=== PATIENT | male | born 1990 | race Caucasian/White ===

== ENCOUNTER 2017-02-09 19:01 | Emergency (ER) | payer OTHER ==
[~2017-02-09] VITALS: Ht 182.9 cm; Wt 74.8 kg
== END 2017-02-09 20:06 | disposition home or self-care (01) ==
LOC: ED 19:01
DX: S05.02XA Injury of conjunctiva and corneal abrasion without foreign body, left eye, initial encounter (principal); F17.200 Nicotine dependence, unspecified, uncomplicated; Z88.1 Allergy status to other antibiotic agents; Z88.8 Allergy status to other drugs, medicaments and biological substances; X58.XXXA Exposure to other specified factors, initial encounter
CPT/HCPCS: 99282

== ENCOUNTER 2017-07-01 20:17 | Emergency (ER) | payer OTHER ==
[~2017-07-01] VITALS: Ht 182.9 cm; Wt 77.1 kg
[2017-07-01] MEDS ORDERED: IBUPROFEN200 MG PO (20:28)
== END 2017-07-01 23:36 | disposition home or self-care (01) ==
LOC: ED 20:17
DX: S16.1XXA Strain of muscle, fascia and tendon at neck level, initial encounter (principal); F17.200 Nicotine dependence, unspecified, uncomplicated; Z88.0 Allergy status to penicillin; Z88.1 Allergy status to other antibiotic agents; V89.2XXA Person injured in unspecified motor-vehicle accident, traffic, initial encounter
CPT/HCPCS: 72125; 73030; 99284

== ENCOUNTER 2018-05-28 13:12 | Emergency (ER) | payer OTHER ==
[~2018-05-28] VITALS: Ht 182.9 cm; Wt 77.1 kg
[~2018-05-28 13:12] MED LIST: IBUPROFEN200 MG PO
== END 2018-05-28 13:25 | disposition home or self-care (01) ==
LOC: ED 13:12
DX: R21 Rash and other nonspecific skin eruption (principal)

== ENCOUNTER 2021-01-11 08:26 | Inpatient (IN) | payer OTHER ==
[~2021-01-11] VITALS: Ht 182.9 cm; Wt 75.5 kg
[2021-01-11] MEDS ORDERED: FLUOXETINE HCL40 MG PO (08:41)
--- NOTE | 2021-01-11 12:20 | NUR ---
pt remians in day surgery/OR at this time, recieved report from DANAE daniels.
--- NOTE | 2021-01-11 12:24 | NUR ---
REPORT RECEIVED FROM TYREE FINK, THIS RN ASSISTING PRIMARY RN, MARIANO. PT REMAINS IN OR, AWAITING PTS ARRIVAL TO UNIT.
--- NOTE | 2021-01-11 13:00 | NUR ---
CALL PLACED TO [facility] FOR UPDATE ON PTS STAUTS, NO ANSWER AT THIS TIME.
--- NOTE | 2021-01-11 13:01 | CONS ---
[facility] [address], [place] [address] Signed DATE OF CONSULTATION: 01/11/2021 CHIEF COMPLAINT: Right lower quadrant abdominal pain. HISTORY OF PRESENT ILLNESS: Yary is a 30-year-old young man otherwise healthy, who I know previously from taking care of various family members. For two days now, he has had increasing right lower quadrant abdominal pain associated with nausea, diarrhea and anorexia. Apparently, his daughter had jumped on him at home. He finally decided to come to the emergency room for evaluation. He said many family members have had their appendix out. He has localized peritonitis in the right lower quadrant. White count is elevated. CT scan confirmed his thickened dilated appendix with some gas and fluid along the appendix and up the right gutter. I have been asked to see him as a general surgeon on-call. In the meantime, he received Cipro and Flagyl. His COVID test is almost available. I just come out of the operating room and have come to see Yary. He has received some morphine, we are going to add some Dilaudid as well. PAST MEDICAL HISTORY: Anxiety and depression. PAST SURGICAL HISTORY: Bilateral lazy eye surgery. SOCIAL HISTORY: He likes to smoke marijuana, but not cigarettes. He does not drink. He is to [facility] at [phone][address] Aimee Gonzáles is his primary care provider. 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 He prefers the [facility], although they are now currently closed permanently. FAMILY HISTORY: None. REVIEW OF SYSTEMS: He had 10 systems reviewed. There is nothing new to add. ALLERGIES: Augmentin. MEDICATIONS: Prozac 80 mg p.o. daily. PHYSICAL EXAMINATION: Electronically Signed By: LUIS WEINSTEIN MD 01/11/21 1301 PATIENT NAME: YARY WILCOX CONSULTATION DATE OF : 86 REPORT #: [id number] PHYSICIAN: LUIS WEINSTEIN MD PCP: AIMEE GONZÁLES MD REPORT IS CONFIDENTIAL AND NOT TO BE RELEASED WITHOUT AUTHORIZATION [facility] [address], [place] [address] Signed VITAL SIGNS: Blood pressure 136/86, heart rate 78, respiratory rate 18, temperature is 99.5, he is 99% on room air, he is 6 feet tall, weight 75 kg. GENERAL: Yary is a 30-year-old gentleman lying supine in his ER bed watching TV. He is currently having pain in the right lower quadrant of the abdomen. LUNGS: Clear to auscultation bilaterally. HEART: Regular rate and rhythm without murmurs. ABDOMEN: Generally soft and flat, but he certainly has localized peritonitis in right lower quadrant. LABORATORY DATA: White blood count is 23, neutrophils 84, hemoglobin 14. Electrolytes are unremarkable. Lactic acid is 1.2. Albumin is 4.0. Blood cultures are pending. His COVID test is almost available. RADIOGRAPHIC STUDIES: CT scan of the abdomen and pelvis is reviewed along with the report. He clearly has a thickened appendix, kind of below and just lateral to the cecum with some gas and some fluid in that area and the fluid is going up the right gutter just a bit. ASSESSMENT AND PLAN: Yary is a 30-year-old gentleman who presents with what looks like ruptured appendicitis. We are going to give him some additional Dilaudid at this point directly to the operating room here shortly once the COVID test is available. It should be within a few minutes. I reviewed with him the location of function of the appendix. He is very familiar with appendix surgery through his various family members. He understands laparoscopic versus open appendectomy. He understands there is risk including, but not limited to bleeding, infection, scarring, change in contour of the skin, damage to bowel, appendiceal stump leak, postoperative intraabdominal abscess, incisional hernias and other unforeseen comorbidities. We have reviewed the expected intraop and postop course. Given his level of illness, I suspect he will be in the hospital for a few days at least. He has expressed understanding and agrees to above plan. Luis Weinstein MD ALB/MODL /[id number] Electronically Signed By: LUIS WEINSTEIN MD 01/11/21 1301 PATIENT NAME: YARY WILCOXN CONSULTATION DATE OF : 86 REPORT #: [id number] PHYSICIAN: LUIS WEINSTEIN MD PCP: AIMEE GONZÁLES MD REPORT IS CONFIDENTIAL AND NOT TO BE RELEASED WITHOUT AUTHORIZATION [address] [address] Signed cc: MD Aimee Hurt MD Copies: LUIS WEINSTEIN MD ~ Electronically Signed By: LUIS WEINSTEIN MD 01/11/21 1301 PATIENT NAME: YARY WILCOX CONSULTATION DATE OF : 86 REPORT #: [id number] PHYSICIAN: LUIS WEINSTEIN MD PCP: AIMEE GONZÁLES MD REPORT IS CONFIDENTIAL AND NOT TO BE RELEASED WITHOUT AUTHORIZATION
--- NOTE | 2021-01-11 13:11 | NUR ---
PTS OLDER SISTER, HARRISON, CALLED AND REQUESTS UPDATE ON PT. HARRISON IS NOT ON PTS CONTACT LIST AND WAS ENCORUAGED TO CALL PTS FOR COMPLETE UPDATE. HARRISON TOLD THAT HER BROTHER IS SAFE AND RECOVERING AT THIS TIME. HARRISON IS GREATFUL FOR INFORMATION AND STATES SHE WILL CALL PTS SHORTLY.
--- NOTE | 2021-01-11 13:24 | NUR ---
01/11/21 1324 Darlene Jimenez 1254 PT ARRIVED IN PACU NON RESPONSIVE TO NOXIOUS STIMULI WITH OPA. 1317 PT REACTIVE. OPA REMOVED. ICE TO ABD. 1324 PT REPOSITIONED SELF TO R SIDE. NO C/O'S. STATES "I FEEL BETTER."
--- NOTE | 2021-01-11 13:45 | NUR ---
PT ARRIVED FROM PACU. REPORT RECEIVED FROM DANAE BUSCH. PT TRANSFERES SELF TO BED, STAND BY ASSIST. PT DENIES PAIN AND NAUSEA AT THIS TIME. NOTED THAT LOCAL WAS APPLIED TO INCISION SITES. GAUZE DRESSINGS TO SITES REMAIN C/D/I WITH NO DRAINAGE NOTED. BOWEL TONES HYPOACTIVE AT THIS TIME. PT ALERT AND ORIETNED BUT DROWSY, FALLS ASLEEP BETWEEN CARES. PINPOINT PUPILS NOTED, CPOX IN PLACE WITH OXGYEN SATURATIONS ABOVE 94% ON ROOM AIR. PT ON CLEAR LIQUID DIET AT THIS TIME, DENIES HUNGER, ICE WATER PROVIDED. PT REMAINS DUE TO VOID AT THIS THIS TIME, IV FLUIDS STARTED (SEE MAR). PT ENCORUAGED TO REST AT THIS TIME. I.S. EDUCATINO DONE BY DANAE QUINTANA. SCD'S IN PLACE. ICE PACK IN PLACE. PT DENIES ADDITIONAL REQUESTS OR COMPLAINTS. CALL LIGHT WITHIN REACH. BED RAILS UP.
--- NOTE | 2021-01-11 14:30 | NUR ---
DUPLICATE MEDICATIONS NOTED. DR. WEINSTEIN CONSULTED AND STATES TO HOLD ENOXAPARIN DOSE TODAY AND START TOMORROW SINCE PT HAS ALREADY RECEIVED A DOSE. DR. WEINSTEIN ALSO STATES TO RETIME FLAGY TO START 6 HOURS FROM ER DOES AND GIVE Q6 TODAY AND THEN CHANGE TOMORROWS DOES TO 1000MG Q DAY. PHARMACIST CALLED AND ORDERS ADJUSTED. PTS PRIMARY RN, MARIANO, UPDATED.
--- NOTE | 2021-01-11 14:45 | NUR ---
IN ROOM WITH PT, ASSESSMENT COMPLETED AT THIS TIME. VS OBTAINED. NO SOB NOTED. PT WITH C/O PAIN 3/10 TO RUQ. PT REPORTS TENDERNESS TO RUQ. BT X 4. INCISIONS X 3 TO RUQ AND MIDLINE WITH DRESSINGS C/D/I. IV DRESSING INTACT AND WNL. DENIES NAUSEA AT THIS TIME. PRN NORCO GIVEN AT THIS TIME. PT WITH ICE PACK ON ABD. PT CONTINUES TO TOELRATE CLEAR FLUIDS AT THIS ITME. IS PERFORMED BY PT X 5, 2000MLS. PT EDUCATION PROVIDED R/T IS, PT ABLE TO VERBALIZE UNDERSTANDING. PT STILL UNABLE TO VOID AT THIS TIME, DENIES NEED BUT WILL CALL IF HER NEEDS TO GO. PT SLEEPY, BUT WAKENS EASILY TO VOICE. PT PLEASANT AND COOPERAITVE WITH CARES. NO OTHER CONCERNS OR REQUESTS AT THIS TIME. BED RAILS UP. CALL LIGHT IN REACH.
--- NOTE | 2021-01-11 15:45 | NUR ---
IN ROOM TO CHECK ON PT. PT RESTING WITH EYES CLOSED, EASILY WAKENS BY VOICE, ASSESSMENT COMPLETED. ALERT AND ORIETNED. PT REPORTS PAIN 2/10 TO RUQ. RUQ REMAINS TENDER AT THIS TIME. PT DENIES NAUSEA AT THIS TIME, CONTIONUES TO TOELRATE FLUIDS WELL. INCISIONS TO RUQ AND ABD MIDLINE WITH DRESSINGS C/D/I. PT DENIES NEED TO VOID AT THIS TIME. PT REMAINS ALERT AND OREITNED. SCDS ON AT THIS TIME. IV REMAINS PATENT AT THIS TIME, NO S/SX OF INFILTRATION OR PHELEBITIS AT THIS TIME. PT ASSISTED WITH BLANKETS AND REPOSITIONING. PT OFFERED WARM BLANKET, PT DECLINED. NO OTHER CONCERNS, REQUESTS, CALL LIGHT IN REACH.
--- NOTE | 2021-01-11 16:45 | NUR ---
VIALS AND ASSESSMENT DUE. THIS RN TO ROOM. PT RESTING ON LEFT SIDE WITH EYES CLOSED. RESPIRATIONS EVEN AND UNLABORED. PT AWAKENS TO VOICE. PT NOTED TO BE DIAPHORETIC. PT REPORTS "I ALWAYS SWEAT WHEN I SLEEP." PT STATES HE HAS HAD TROUBLE SWEATHING WITH SLEEP SINCE HE WAS A CHILD. VITAL SIGNS STABLE. IV ASSESSED, WNL, BRISK BLOOD RETURN NOTED WITH FLUSH. PT ORIENTED BUT CONTINUES TO BE DROWSY AND FALLING ALSEEP BETWEEN CARES. COPX IN PLACE WITH OXYGEN SATURATIONS ABOVE 94% ON ROOM AIR. LUNG SOUNDS CLEAR. PT UP TO RESTROOM WITH STAND BY ASSIST TO VOID. PT REPORTS PAIN INCREASES TO A 4/10 WITH AMBULATION BUT RESOLVES WITH REST. PT VOIDS 100ML DARK YELLOW URINE. PT REPORTS THE SWELLING TO HIS ABOMDOMEN HAS IMPROVED STATING "IT'S AMAZING HOW MUCH THAT SWELLING HAS GONE DOWN ALREADY." MILD SWELLIGN TO RLQ NOTED. ABDOMEN TENDER TO TOUCH. HYPOTACTIVE BOWEL TONES NOTED. PT DENIES NAUSEA. LAP SITES X4 C/D/I BUT FOR A DIME SIZE AMOUNT OF RED SHADOWING TO UMBILICAL DRESSING. STAND BY ASSIST BACK TO BED, WARM BLANKETS PROVIDED. GENERAL SCIENCE TEACHER UPDATED AND WILL REASSES VITAL SIGNS AT ~1800. PT DENIES ADDITIONAL REQUESTS OR COMPLAINTS. CALL LIGHT WITHIN REACH. BED RAILS UP.
--- NOTE | 2021-01-11 17:51 | NUR ---
Patient's temperature is 99. RN will be notified right away.
--- NOTE | 2021-01-11 18:00 | NUR ---
Hua is on clears and had a jello for dinner, 100 ml.
--- NOTE | 2021-01-11 18:09 | NUR ---
THIS RN TO ROOM TO CHECK ON PT. PT REPORTS 4/10 ACHING ABDOMINAL PAIN AND REQUESTS ADDITIONAL PAIN MEDICATION (SEE MAR FOR MEDICATION GIVEN). PT TALKING ON PHONE WITH FAMILY. NO ADDITIONAL REQUESTS OR COMPLAINTS. CONTINUES TO BE DIAPHORETIC WITH SLEEP, DIAPHORESIS STOPPS ONCE PT IS AWAKE. VITAL SIGNS STABLE. CALL LIGHT WITHIN REACH. BED RAILS UP.
--- NOTE | 2021-01-11 18:12 | NUR ---
PTS SISTER HARRISON UPDATED PER PT REQUEST. HARRISON VERBALIZES UNDERSTANDING OF PLAN OF CARE AND STATES HER QUESTIONS HAVE BEEN ANSWERED. PTS MOTHER, AMENA, CALLED AND UPDATED PER PT REQUEST. AMENA VERBALIZES UNDERSTANDING AND STATES HER QUESTIONS HAVE BEEN ANSWERED.
--- NOTE | 2021-01-11 18:17 | NUR ---
PT ADMITTED THIS SHIFT AFTER A LAP APPY FOR A RUPTURED APPENDIX. PT UP WITH STAND BY ASSIST TO RESTROOM. PT HAVE VOIDED POST OP BUT ONLY MINIMAL AMOUNTS. PT ON CLEAR LIQUID DIET, TOLERATING THIS SHIFT WITHOUT NAUSEA. PRN PAIN MEDICATIONS GIVNE FOR 2-4/10 ACHING ABDOMINAL PAIN. COPX IN PLACE WITH OXYGEN SATURATIONS ABOVE 94% ON ROOM AIR. GAUZE DRESSINGS TO 3 ABDOMINAL LAB SITES C/D/I BUT FOR A DIME SIZE AMOUNT OF RED SHADOWING ON THE UMBILICAL DRESSING. PTS FAMILY UPDATED. PT ALERT AND ORIENTED. DIAPHORESIS NOTED WHEN PT IS SLEEPING, PT REPORTS THIS IS NORMAL FOR HIM. PT USES CALL LIGHT AND MAKES NEEDS KNOWN.
--- NOTE | 2021-01-11 19:00 | NUR ---
SHIFT REPORT RECEIVED FROM SHRUTHIWAMOISES NOGUEIRA AT BEDSIDE. pt AWAKE AND RESTING IN BED, URINAL EMPTIED. IV FLUIDS INFUSING DIRECTED. LAP SITES INTACT, WITH SCANT SHADOWING NOTED TO LAP SITE ABOVE UMBILLICUS. pt DENIES NEEDS RO CONCERNS, SCD'S OFF PER pt REQUEST. NO ADDITIONAL NEEDS, CALL LIGHT IN REACH.
--- NOTE | 2021-01-11 20:25 | NUR ---
IN TO GET VITALS, ICE WATER PROVIDED ,MARVIN LOPEZ, RN INFORMED, PT USED I.S., NO FURTHER NEEDS
--- NOTE | 2021-01-11 20:59 | NUR ---
ASSESSMENT COMPLETE, SCHEDULED IV ABX INFUSING DIRECTED ALONG WITH IV FLUIDS, IV SITE WNL WITH BRISK BLOOD RETURN. pt REPORTS 3/10 PAIN IN ABD, PRN MOTRIN GIVEN, SEE EMAR. pt DENEIS NAUSEA, NO NEW SHADOWING TO LAP SITES X3. BOWEL TONES ACTIVE pt DENIES PASSING GAS, EDEMA IN LOWER ABD IMPROVING, WILL CONTINUE TO MONITOR. pt TOLERATING CLEAR LIQUID DIET. CPOX IN PLACE, VSS. IS AT BEDSIDE AND pt DEMONSTRATED USE. NO ADDITIONAL NEEDS, DECLINES SCD'S AT THIS TIME. CALL LIGHT IN REACH.
--- NOTE | 2021-01-11 21:27 | OR ---
[facility] [address] [place], [place] [address] Signed DATE OF OPERATION: 01/11/2021 SURGEON: Luis Weinstein MD PREOPERATIVE DIAGNOSIS: Ruptured appendicitis. POSTOPERATIVE DIAGNOSIS: Ruptured appendicitis. PROCEDURE: Laparoscopic appendectomy. ESTIMATED BLOOD LOSS: None. FINDINGS: Yary indeed had a black necrotic distal appendix with a rupture in the midportion. Just a little stool present at the perforation. He did have some fluid in the right gutter and up near his liver. That was all suctioned out quite easily. INDICATIONS: Yary is a 30-year-old gentleman I have known actually for quite a few years. I have taken care quite a few of his family members including appendicitis. Two days ago, he started having pain in the right lower quadrant. It became progressively worse. He is having nausea, diarrhea, and anorexia. He finally came to the emergency room for evaluation. He had peritonitis in the right lower quadrant. White count was elevated. CT scan confirmed his thickened dilated ruptured appendix with some gas and fluid around the appendix and up along the right gutter toward the liver. I was asked to see me in the emergency room with respect to the above. He received Cipro and Flagyl per the ER physician. He had received pain medication as well. I had met with Yary in the emergency room. We had discussed the location and function of the appendix. We discussed laparoscopic versus open appendectomy. He reminded me that I had taken care several of his family members for appendicitis. Given his ruptured appendix, we suspect he will be in the hospital at least for a few days. He knows his risks including, but not limited to bleeding, infection, scarring, change in contour of the skin, damage to bowel, appendiceal stump leak, postoperative intraabdominal abscess, incisional hernias, and other unforeseen comorbidities. He had expressed understanding and wished to proceed. Electronically Signed By: LUIS WEINSTEIN MD 01/11/212126 PATIENT NAME: YARY WILCOX OPERATIVE REPORT DATE OF : 86 REPORT #: [id number] PHYSICIAN: LUIS WEINSTEIN MD PCP: AIMEE GONZÁLES MD REPORT IS CONFIDENTIAL AND NOT TO BE RELEASED WITHOUT AUTHORIZATION [facility] [address] [place] [id number] Signed PROCEDURE NOTE: Yary was taken directly from the emergency room over to the operating room. He was placed in the supine position under general endotracheal tube anesthesia. He did receive subcutaneous Lovenox. SCDs were utilized. He already had his preoperative antibiotics. A Alas catheter was inserted with return of clear yellow urine without difficulty. His abdomen was prepped and draped in usual sterile fashion. We placed our trocars in the usual positions under direct visualization without difficulty. It took a few minutes to bluntly dissect the appendix free. The base of the appendix was cleared off with the help of the cautery and divided from the cecum with the help of a linear stapler. We then used a linear stapler to divide the mesoappendix next to the appendix as well. All hemostasis was excellent. The appendix was placed into an EndoCatch bag and taken out through the right subcostal trocar site. The trocar was reintroduced and we suctioned out the fluid in the right gutter along the liver. There was no abscess cavity and therefore no drain was left. He did have moderate inflammatory changes. After this, we used our laparoscopic suturing device to pass 0 Vicryl suture on either side of the fascia of the right subcostal trocar site. This was tied down to close this fascia primarily. After this, the fascia of the supraumbilical trocar site was closed with interrupted simple and [id number] 0-Vicryl sutures. Local anesthetic was injected into all 3 trocar sites. Each trocar site was irrigated and suctioned out until clear. The skin and dermis of each trocar site were closed with interrupted 3-0 subcuticular Monocryl sutures. Dry gauze and tape were applied to all 3 incisions. The Alas catheter was removed. Yary was awakened from his anesthesia, extubated in the OR, and taken to recovery room in stable condition. Luis Weinstein MD ALB/MODL /[id number] cc: MD Dr. Aimee Hurt Copies: LUIS WEINSTEIN MD Electronically Signed By: LUIS WEINSTEIN MD 01/11/21 2127 PATIENT NAME: YARY WILCOX JUNIOR OPERATIVE REPORT DATE OF : 86 REPORT #: [id number] PHYSICIAN: LUIS WEINSTEIN MD PCP: AIMEE GONZÁLES MD REPORT IS CONFIDENTIAL AND NOT TO BE RELEASED WITHOUT AUTHORIZATION [address] [address] Signed ~ Electronically Signed By: LUIS WEINSTEIN MD 01/11/212126 PATIENT NAME: YARY WILCOX OPERATIVE REPORT DATE OF : 86 REPORT #: [id number] PHYSICIAN: LUIS WEINSTEIN MD PCP: AIMEE GONZÁLES MD REPORT IS CONFIDENTIAL AND NOT TO BE RELEASED WITHOUT AUTHORIZATION
--- NOTE | 2021-01-11 22:59 | NUR ---
pt reports he has been sleeping until just got up to void
--- NOTE | 2021-01-12 06:09 | NUR ---
[phone] SEE PAPER CHARTING
--- NOTE | 2021-01-12 06:15 | NUR ---
iv pump cleared, iv site wnl. pt deny additional needs, call light in reach. facility designer froilan in room collecting vs.
--- NOTE | 2021-01-12 07:28 | NUR ---
REPORT RECEIVED FROM DANAE STEPHENS. PT RESTING IN BED WITH EYES CLOSED, RESPIRATIONS EVEN AND UNALBORED. OXYGEN SATURATION 94% ON ROOM AIR, HEART RATE OF 80. PT ALLOWED TO REST. CALL LIGHT WITHIN REACH. BED RAILS UP.
--- NOTE | 2021-01-12 08:13 | NUR ---
MED REC COMPLETE
--- NOTE | 2021-01-12 09:00 | NUR ---
Spoke with Bunny and he states he lives with his , kids, and father in law in a 1 story home. Two steps into home. does not drive, he states father in law can grocery shop if needed. Pt is aware of [employer] and [employer]. States they are financially ok. I gave him the number for [employer] [facility]. Pt denies other concerns. States he may need to be off for a few days. Discussed FMLA and need to and sick leave. Plans on dc to home when cleared medically by Dr. Jefferson. He is aware plans on him staying a few more days due to appendics being ruptured.
--- NOTE | 2021-01-12 09:04 | NUR ---
MORNING ASSESSMENT AND MEDICATION DUE. PT SITTING UP IN BED EATING CLEAR LIQUIDS FOR BREAKFAST. PT DENIES NAUSEA. REPORTS 5/10 ACHING "WITH A PINCH" "BECAUSE I JUST COUGHED." PT REQUESTS PAIN MEDIACTION (SEE MAR FOR MEDICATION GIVEN). PT ALERT AND ORIENTED. NO LONGER DROWSY. LUNG SOUNDS CLEAR. OXYGEN SATURATIONS REMAIN ABOVE 94% ON ROOM AIR. CPOX IN PLACE. MILD ABDMONIAL EDEMA CONTINUES ESPICIALLY TO RIGHT LOWER QUADRANT. ABDOMEN TENDER TO TOUCH. BOWEL TONES ACTIVE, PT REPORTS HE HAS PASSED [place] AN ADDITIONAL TIME. QUARTER SIZE AMOUNT OF RED SHADOWING TO CAUDAL DRESSING, DIME SIZE AMOUNT OF SHADOWING TO UMBILICAL DRESSING. DRESSINGS OTHERWISE C/D/I. PT DEMONSTRATES USE OF I.S. REACHING 1750-2000ML X5. PT REQUESTS A NEW IV STATING "THIS ONE IS BEEPING ALL THE TIME." STUDENT NURSE STARTING NEW IV WITH HER INSTRUCTORS HELP.IV ABX CONTINUE INFUSING AT THSI TIME. THROUGH LEFT AC IV. PT DENIES ADDITONAL REQUESTS OR COMPLAINTS. CALL LIGHT WITHIN REACH. BED RAILS UP.
--- NOTE | 2021-01-12 09:41 | NUR ---
THIS RN TO ROOM TO CHECK ON PT AND PROGRESS WITH IV. STUDENT RN WAS SUCCESSFUL WITH IV PLACEMENT. IV FLUDS AND ABX INFUSION TRANSFERED TO NEW LINE IN LEFT FORARM. IV TO LEFT AC DC'D PER PROTOCOL BY STUDENT RN. GAUZE AND COBAN APPLIED. PT REPORTS THE PAIN IS "ABOUT THE SAME BUT IT'S STARTING TO GO DOWN A LITTE." PT DEMONSTRATES USE I.S. X3 REACHING ~2000ML. NO ADDITIONAL REQUESTS OR COMPLAINTS. CALL LIGHT WITHIN REACH. BED RAILS UP.
--- NOTE | 2021-01-12 10:30 | NUR ---
THIS RN TO ROOM TO CHECK ON PT. PT REPORTS PAIN IS NOW 4/10, PT REQUESTS TO GET UP TO AMBULATE. 1 SHORT LAP DONE IN [place]. PT STEADY ON FEET BUT BECOMES INCREASINGLY PAINFUL WITH AMBULATION UP TO 7/10. ADDITIONAL PAIN MEDICATION GIVEN BY STUDENT RN. IV FLUID RATE DECREASED PER MD ORDER. PT ENCOURAGED TO DRINK PO FLUIDS. NO ADDITIONAL REQUESTS OR COMPLAINTS AT THIS TIME. CALL LIGHT WITHIN REACH. BED RAILS UP.
--- NOTE | 2021-01-12 11:16 | NUR ---
THIS RN TO ROOM TO CHECK ON PT. PT RESTING WITH EYES CLOSED, RESPIRATIONS EVEN AND UNABLORED. HEAD OF BED ELEVATED TO 30 DEGREES. BED RAILS UP. CALL LIGHT WITHIN REACH. PT ALLOWED TO REST.
--- NOTE | 2021-01-12 14:01 | NUR ---
DANAE RUIZ REQUESTED I NOT DISTURB PT AT THIS TIME, WILL FOLLOW
--- NOTE | 2021-01-12 14:30 | NUR ---
AFTERNOON ASSESSMENT DUE. THIS RN TO ROOM. PT UP IN ROOM, WALKING TO RESTROOM, NO ASSISTANCE NEEDED. PT RETURNS FROM RESTROOM, INDEPENDANTLY. REPORTS 6-7/10 ACHING ABDOMINAL PAIN WITH ACTIVITY AND REQUESTS PAIN MEDICATION. SEE MAR FOR MEDICATION GIVEN. PT REPORTS HE FELT LIKE HE NEEDED TO HAVE A BOWEL MOVEMENT BUT WAS UNABLE TO. EDUCATION DONE WITH PT. PT ENCORUAGED NOT TO STRAIN OR FORCE BOWEL MOVEMENTS AT THIS TIME. IV ASSESSED. WNL, NO S/S OF PHELBITIS NOTED. PT NOTES THAT DIAPHROESIS CONTINUES WHEN SLEEPING ALTHOUGH TO A LESSER DEGREE THAN YESTERDAY. MILD ABDOMINAL DISTENTION NOTED. ABDOMEN CONTINUES TO BE TENDER TO TOUCH. GAUZE DRESSINGS PREVIOUSLY REMOVED BY DR. WEINSTEIN. INCISIONS C/D/I WITH NO DRAINGE NOTED, EDGES WELL APROXIMATED. PT ADVANCED TO FULL LIQUID DIET, PT ABLE TO EAT SOUP WITH OUT NAUSEA. PT REPORTS MINIMAL APPITITIE. PT DENIES ADDIITONAL REQUESTS OR COMPLAINTS. CALL LIGHT WITHIN REACH. BED RAILS UP.
--- NOTE | 2021-01-12 15:44 | NUR ---
THIS RN TO ROOM TO CHECK ON PT. TEMPERATURE REASSESSED, NOW 98.4. PT REPORTS ABDOMINAL PAIN AT 6/10. PT REPORTS ANY KIND OF MOVEMENT IS INCREASING ABDOMINAL PAIN. NEW ICE PACK PROVIDED. PT REPORTS HE WOULD LIKE TO WAIT AN ADDITIONAL FEW MINUTES WITH REST TO SEE IF PAIN INPROVES. PT DEMONSTRATES USE OF I.S. REACHING 2000ML X2. PT REPORTS HE CAN FEEL "AIR MOVING AROUND" IN HIS ABDOMIN. PT NOW RESTING WITH EYES CLOSED. RESPIRATIONS EVEN AN UNLABORED. CALL LIGHT WITHIN REACH. BED RAILS UP.
--- NOTE | 2021-01-12 17:15 | NUR ---
THIS RN TO ROOM TO CHECK ON PT. PT EPORTS PAIN HAS IMPROVED, NOW 05/18. JOSEPH RN AT BEDSIDE WORKING WITH PT (SEE HER NOTE). PT EATING FULL LIQUIDS FOR DINNER. NO ADDITIONAL REQUESTS OR COMPLAINTS. CALL LIGHT WITHIN REACH.
--- NOTE | 2021-01-12 17:24 | NUR ---
THIS NURSE TO ROUND ON PT. PT IN BED. REPROTS PAIN 05/18. DOES REPORT NAUSEA. ZOFRAN ADMISNTERED. NO EMESIS. DIET ORDER CHANGED TO VEGITARIAN PER PT REQUEST AND NEW DINNER ORDERED. VOIDED 100ML. WORKING ON INCENTIVE SPEROMETER NOW. PLAN FOR WALK AFTER DINNER.
--- NOTE | 2021-01-12 17:40 | NUR ---
Pt complained of nausea. IV zofran given per order for PRN nausea. Will continue to monitor. Pt is currently denying nausea and requesting to go on a walk.
--- NOTE | 2021-01-12 18:15 | NUR ---
AMBULATED PT DOWN HALLWAY WITH IV POLE. STATED THE WALKING HELPED WITH ABDOMINAL PAIN AND FELT THE AIR MOVING DOWN THROUGH HIS BOWELS. EDUCATED ON IMPORTANCE OF AMBULATING TO HELP MOVE THE AIR THROUGH TO PREVENT ILEUS.
--- NOTE | 2021-01-12 18:17 | NUR ---
THIS RN TO ROOM TO CHECK ON PT. PT REPORTS 3/10 PAIN THAT IS "MUCH BETTER" PT REPORTS PAIN IS MOSTLY IN RUQ AND MINIMAL "LIKE A 1" IN OTHER QUADRANTS. PT DENIES NAUSEA. LAP SITES X3 TO ABDOMEN REAMAIN C/D/I, EDGES WELL APROXIMATED WITH NO DRAINAGE NOTED. PT DENIES ADDITIONAL REQUESTS OR COMPLAINTS AT THIS TIME. EDUCATION DONE WITH PT REGARDING PHOTOGRAPHS THAT WERE PROVIDED FROM DR. WEINSTEIN OF [facility]. CALL LIGHT WITHIN REACH. BED RAILS UP.
--- NOTE | 2021-01-12 18:23 | NUR ---
PT POST OP DAY 1 AFTER LAP APPY FOR RUPTURED APPENDICITIS. PT UP TODAY INDEPENDANTLY, AMBULATES IN [place] WITH STAND BY ASSIST. PAIN CONTROLED WITH PO NORCO AND MOTRIN. PT ADVANCED TO FULL LIQUID DIET, TOLERTING WELL. PRN NAUSEA MEDICATIONS GIVEN X1. PT REPORTS HE IS PASSING GAS, ABDOMEN REMAINS TENDER. GAUZE DRESSINGS REMVOED BY DR. WEINSTEIN THIS SHIFT, INCISIONS C/D/I WITH NO DRAINAGE NOTED, EDGES WELL APROXIMATED. IV ABX GIVEN. PT TOLERATING ROOM AIR WIHT OXYGEN SATURATIONS ABOVE 94%, CPOX DC'D. PT VOIDING QUANTITY SUFFICIENT. PT USES CALL LIGHT AND MAKES NEEDS KNOWN.
--- NOTE | 2021-01-12 20:35 | NUR ---
on room air, alert and oriented, coop with assessment. Lungs clear, using IS at bedside. abd tender, firmer and distended on R side, not passing gas yet, EFREN. 3 lap sites intact, edges well approx. pink, dry, c/o 6/10 abd pain, medicated with 2 [place] . toleratng liquids well, no emesis. voiding dark yellow urine using urinal. IVF infusing LA, call light at hands reach. T99.8, received 2 norco, ice to abd. room temp decreaed from 76 to 70, 2 blankets removed.
--- NOTE | 2021-01-12 22:45 | NUR ---
pt up to br, voided, back to bed, afebrile at this time
--- NOTE | 2021-01-13 01:00 | NUR ---
Up to br, uses urinal, tolerated well, no c/o pain.
--- NOTE | 2021-01-13 03:58 | NUR ---
Resting, eyes closed, got up to br a few minutes ago, tolerated well, denies passing gas, abd incision lap sites intact. ivf infusing. no c/o adverse reaction to abx, tolerating full liquid diet well, no emesis, call light at hands reach
--- NOTE | 2021-01-13 05:43 | NUR ---
Pt has slept off and on, independent in room, on room air, clear lungs, abd with 3 lap sites, intact, low abd area slight distention, HEA. Has been medicated X2 with 2 norco per abd pain, effective. just passed gas stated. IV restarted L Hand 22G, IVF and abx infusing w/o problems. Tolerating full liquid diet. no emesis, pleasant, coop. alert and oriented, has ambulated in room, SCDS off at this time.
--- NOTE | 2021-01-13 06:49 | NUR ---
pt staed he passes gas again. Dr Jefferson in room examining pt
--- NOTE | 2021-01-13 07:32 | NUR ---
REPORT RECEIVED. PT IN BED WITH EYES CLOSED. RESPIRATIONS EQUAL AND NONLABORED. D5LR INFUSING AT 50ML/HR. CALL LIGHT IN REACH.
--- NOTE | 2021-01-13 09:55 | NUR ---
PT HAD LARGE INCONT BOWEL MOVEMENT. SHOWERED AFTERWARDS INDEPENDENTLY. PT THEN OUT TO AMBULATE HALLS WITH CIRCULAR KNITTER. TOLERATED WELL WITH MINIMAL PAIN. ASSESSMENT COMPLETED. PT WITH NO NAUSEA. BREAKFAST AT BEDSIDE STILL. DENIES NEEDS. STUDENT NURSE ADMINSTERING MEDICATIONS WITH INSTRUCTOR.
--- NOTE | 2021-01-13 09:57 | NUR ---
PATIENT WAS IN BATHROOM. SHELL SORTER STATES HE IS TAKING A SHOWER. PATIENT HAS NO CHANGES IN PLAN TO RETURN HOME AT DISCHARGE WITH FAMILY. NO KNOWN BARRIERS AT THIS TIME. WILL FOLLOW NEEDED.
--- NOTE | 2021-01-13 13:40 | NUR ---
PT REPORTS PAIN IS IMPROVED FRO MOTRIN. OUT AMBULATING HALLS NOW INDEPENDENTLY.
--- NOTE | 2021-01-13 15:30 | NUR ---
Call light answered, pt states having nausea, PRN zofran administered. IV ABX infusing. Pt also states having abdominal/incisional pain, medicated with PRN norco. He states no further needs. Lap sites x3 WNL, C/D/I, well approximated. CMS intact, even and unlabored respirations. Call light in reach.
--- NOTE | 2021-01-13 19:10 | NUR ---
PATIENT TOOK A SHOWER SOMETIME THIS MORNING.
--- NOTE | 2021-01-13 21:20 | NUR ---
pt walked hallways, and in room, back to bed, onroom air, coop with assessment. lungs clear, passing gas, had a bm, and w 3 lap sites intact, eryn, small distention lower abd. c/o 6/10 abd pain, medicated with Motrin. IVF infusing, no c/o adverse reaction to abx. tolerating diet and fluids, no emesis. scds off at this time. call light and fluids at hands reach
--- NOTE | 2021-01-13 23:13 | NUR ---
resting, eyes closed, no distress, on room air, ivf infusing,
--- NOTE | 2021-01-14 01:18 | NUR ---
awake, c/o 6/10 abd pain. and lap sites intact, CD, edges well approximated, pink, HEA, tender abd, medicated with norco 2tabs. tolerating liquids well, no emesis. voiding qs yellow urine. IVF infusing, no c/o adverse reaction to abx
--- NOTE | 2021-01-14 03:34 | NUR ---
Resting, eyes closed, on room air, ivf infusing, no further c/o abd pain. fluids and call light at handsa reach.
--- NOTE | 2021-01-14 05:48 | NUR ---
Pt has slept off and on. on room air, lungs clear, has been medicated with motrin and norco x1 each time per abd pain, effective. 3 abd lap sites incision well approx, dry, pink, abd tender, HEA, has had bm, passing gas, voiding QS. IVF infusing w/o problems, no c/o adverse reaction to abx. tolerating fluids and diet well, no emesis. ambulated this shift. tolerated well. pleasant, alert and oriented. turns and repositions self
--- NOTE | 2021-01-14 06:13 | NUR ---
MANAGER MSW ROUNDS WITH . PT UPDATED REGARDING POC, UNDERSTANDING STATED. PT DENIES FURTHER NEEDS AT THIS TIME. CALL LIGHT IN REACH.
--- NOTE | 2021-01-14 06:16 | NUR ---
DR WEINSTEIN IN ROOM TO SEE PT.
--- NOTE | 2021-01-14 07:20 | NUR ---
REPORT RECEIVED FROM RN NICOLETTE. pt RESTING IN BED ON RIGHT SIDE. IV ANTIBIOTIC COMPLETE. EYES CLOSED, BREATHING EQUAL AND UNLABORED.
[2021-01-14] MEDS ORDERED: HYDROCODON-ACE1 EA10 PO (07:36)
[2021-01-14] MEDS ORDERED: METRONIDAZOLE500 MG PO (07:37)
[2021-01-14] MEDS ORDERED: LEVOFLOXACIN500 MG PO (07:37)
--- NOTE | 2021-01-14 07:46 | NUR ---
PT SLEEPING. UPDATED WHITE BOARD. WILL CHECK BACK IN ON PT SHORTLY. CALL LIGHT WITHIN REACH.
--- NOTE | 2021-01-14 09:10 | NUR ---
pt RESTING IN BED AWAKE. ASSESSMENT COMPLETE. BOWEL TONES ACTIVE, ABD SOFT, TENDER IN LLQ WITH PALPATION. LOWER ABDOMEN DISTENDED. pt STATES PASSING GAS. DENIES NAUSEA. RATES PAIN 3/10 IN ABDOMEN. DENIES NEED FOR PRN MEDICATION. WRITTEN DISCHARGE INSTRUCTION PROVIDED. IV SITE D/C'D WNL. pt WAITING IN ROOM FOR RIDE. ICE WATER AND COFFEE PROVIDED. CALL LIGHT IN REACH.
--- NOTE | 2021-01-14 10:16 | DS ---
[facility] [address], [place] [address] Signed ADMISSION DATE: 01/12/2021 DISCHARGE DATE: 01/14/2021 FINAL DIAGNOSIS: Ruptured appendicitis. PROCEDURE: Laparoscopic appendectomy. HISTORY OF PRESENT ILLNESS: Yary is a 30-year-old gentleman, who had developed 2 days of right lower quadrant abdominal pain with nausea, diarrhea, and anorexia. He finally came to the emergency room for evaluation. White count was elevated. He had peritonitis in the right lower quadrant. The CT scan confirmed his dilated appendix with some gas and fluid around the appendix and up along the right gutter. I had been asked to admit him as a general surgeon on-call. HOSPITAL COURSE: Yary was admitted as above and started on his antibiotics. He was taken directly to the operating room from the ER for his laparoscopic appendectomy. He did have a rupture with a little stool present at the opening. He had inflammatory changes around his terminal ileum, cecum, and up to right gutter. No obvious abscess. Therefore, no drain was left in place. He was kept in the hospital on cefepime and Flagyl. He has done very well and now he has had just 1 single small temperature elevation yesterday. He is tolerating a soft diet. He is having moderate amount of flatus. He has had a small bowel movement. His abdomen is flat. The peritonitis resolved in about 24 hours. He is tender in the right lower quadrant, but markedly improved. It is fairly minimal at this time. All his incisions are healing well without any local signs or symptoms of infection. Due to his progress, we are going to be discharging him to home. DISCHARGE PLANS AND MEDICATIONS: Yary will be discharged to home with a prescription for [place] 5/325 one tablet p.o. q.6 hours p.r.n. for severe postoperative pain. We will dispense 20 tablets with no refills. He can supplement with Tylenol, ibuprofen, or Aleve for [id number] postoperative pain. That can be purchased [id number]. He will have Levaquin 500 mg 1 tablet p.o. daily for 7 days without refills. He will have Flagyl 500 mg 1 tablet p.o. t.i.d. for 7 days without refills. He can continue his chronic medications at home. He will continue a regular diet at home. He can perform his activities of daily living, including walking up and down stairs and showering, bathing as usual. He is not to do any heavy pushing, pulling, or lifting over 20 pounds. He would not be working Electronically Signed By: LUIS JEFFERSON MD 01/14/21 1016 PATIENT NAME: YARY WILCOX DISCHARGE SUMMARY DATE OF : 86 REPORT #: [id number] PHYSICIAN: LUIS JEFFERSON MD PCP: AIMEE GONZÁLES MD REPORT IS CONFIDENTIAL AND NOT TO BE RELEASED WITHOUT AUTHORIZATION [address] [address] Signed currently. He will return to my office in about a week. Luis Jefferson MD ALB/MODL /[id number] cc: Dr. Aimee Jefferson MD Copies: LUIS JEFFERSON MD ~ Electronically Signed By: LUIS JEFFERSON MD 01/14/21 1016 PATIENT NAME: YARY WILCOX JUNIOR DISCHARGE SUMMARY DATE OF : 86 REPORT #: [id number] PHYSICIAN: LUIS JEFFERSON MD PCP: AIMEE GONZÁLES MD REPORT IS CONFIDENTIAL AND NOT TO BE RELEASED WITHOUT AUTHORIZATION
--- NOTE | 2021-01-14 10:24 | NUR ---
PT UP TO RESTROOM FOR VOID. VSS. OFF FLOOR VIA WHEELCHAIR AT THIS TIME. CARE RIDE PROVIDED. AMALIA OKEEFE.
== END 2021-01-14 10:25 | disposition home or self-care (01) | DRG 340 ==
LOC: ED 08:26 → MS 08:27
PROVIDERS: ADMIT Colon & Rectal Surgery; ATTEND Colon & Rectal Surgery
PROC: 0DTJ4ZZ Resection of Appendix, Percutaneous Endoscopic Approach (ICD-10-PCS; principal; 2021-01-11 11:13)
DX: K35.32 Acute appendicitis with perforation, localized peritonitis, and gangrene, without abscess (principal); Z20.822 Contact with and (suspected) exposure to COVID-19; F41.9 Anxiety disorder, unspecified; F32.9 Major depressive disorder, single episode, unspecified; Z88.1 Allergy status to other antibiotic agents
CPT/HCPCS: 00840; 74177; 80053; 81001; 83605; 83690; 85007; 85025; 88304; 96367; 96375; 96376; 99285-25; A9270; C9803; G0378; J0131; J0330; J0692; J0744; J1100; J1170; J1650; J1885; J2001; J2250; J2270; J2405; J2704; J3010; J7030; J7121; Q9967; U0003

== ENCOUNTER 2022-07-29 18:52 | Emergency (ER) | payer OTHER ==
[~2022-07-29] VITALS: Ht 182.9 cm; Wt 75.3 kg
[~2022-07-29 18:52] MED LIST changes: +FLUOXETINE HCL40 MG PO; +HYDROCODON-ACE1 EA10 PO; +LEVOFLOXACIN500 MG PO; +METRONIDAZOLE500 MG PO
[2022-07-29] MEDS ORDERED: CLEOCIN HCL300 MG PO (21:15)
[2022-07-29 21:25] VITALS: BP 128/77
== END 2022-07-29 21:26 | disposition home or self-care (01) ==
LOC: ED 18:52
DX: K02.9 Dental caries, unspecified (principal); Z88.0 Allergy status to penicillin; Z88.8 Allergy status to other drugs, medicaments and biological substances
CPT/HCPCS: 99282

== ENCOUNTER 2022-09-12 20:26 | Emergency (ER) | payer OTHER ==
[~2022-09-12] VITALS: Ht 182.9 cm; Wt 94.8 kg
--- OUTSIDE RECORDS SUMMARY | ~2022-09-12 | XMS | Continuity of Care Document ---
Demographics + + + | Address | [address] | | | [place] [address] | + + + | Preferred Language | Unknown | + + + | Marital Status | | + + + | Cheondoism Affiliation | Unknown | + + + | Race | White | + + + | Ethnic Group | Not or | + + + Author + + + | Author | [facility] | + + + | Organization | [facility] | + + + | Address | [address] [facility] [facility] | | | [place] [address] | + + + | Phone | | + + + Care Team Providers + + + + | Care Equipment Operator [employer] Name | Role | Phone | + + + + Unavailable | Unavailable | + + + + Unavailable | Unavailable | + + + + Allergies and Intolerances + + + + + | date | description | facility | type | + + + + + | (no date) | Urticaria | [facility] | (unknown) | | | | Hospital | | + + + + + | (no date) | Amoxicillin | [facility] | (unknown) | | | | Hospital | | + + + + + | (no date) | Amoxicillin | [facility] | (unknown) | | | | Hospital | | + + + + + | (no date) | Amoxicillin | [facility] | (unknown) | | | | Hospital | | + + + + + Encounters No information. Functional Status No information. Immunizations No information. Medications + + + + | date | description | facility | + + + + | 2022-07-29 00:00 | [facility] | [facility] | + + + + Problems + + + + | | description | facility | + + + + | 2017-02-09 00:00 | Abrasion of left cornea | [facility] | + + + + | 2017-07-01 00:00 | Acute strain of neck | [facility] | | | muscle | | + + + + | 2018-05-28 00:00 | Encounter for medical | [facility] | | | screening examination | | + + + + | 2021-01-11 00:00 | Acute perforated | [facility] | | | appendicitis | | + + + + | 2022-07-29 00:00 | Pain due to dental caries | [facility] | + + + + Procedures No information. Results/Labs No information. Social History No information. Vital Signs + + + +---------+ | date | measurement | value | units | + + + +---------+ | 2022-07-29 00:00 | BMI | 22.5 | kg/m2 | + + + +---------+ | 2022-07-29 00:00 | BP_diastolic | 77 | mmHg | + + + +---------+ | 2022-07-29 00:00 | BP_systolic | 128 | mmHg | + + + +---------+ | 2022-07-29 00:00 | heart_rate | 73 | /min | + + + +---------+ | 2022-07-29 00:00 | height_metric | 182.88 | cm | + + + +---------+ | 2022-07-29 00:00 | height_standard | 72 | in | + + + +---------+ | 2022-07-29 00:00 | o2_saturation | 98 | % | + + + +---------+ | 2022-07-29 00:00 | respiration_rate | 16 | /min | + + + +---------+ | 2022-07-29 00:00 | temperature_metric | 37 | C | | | | | | + + + +---------+ | 2022-07-29 00:00 | | 98.6 | F | | | temperature_standar | | | | | d | | | + + + +---------+ | 2022-07-29 00:00 | weight_metric | 75.3 | kg | + + + +---------+ | 2022-07-29 00:00 | weight_standard | 166 | lb | + + + +---------+ | 2022-07-29 00:00 | weight_standard | 166.01 | lb | + + + +---------+"
--- OUTSIDE RECORDS SUMMARY | ~2022-09-12 | XMS | Continuity of Care Document ---
Demographics + + + | Address | [address] | | | [place] [address] | + + + | Preferred Language | Unknown | + + + | Marital Status | | + + + | Orthodox Affiliation | Unknown | + + + | Race | White | + + + | Ethnic Group | Not or | + + + Author + + + | Author | [place] | + + + | Organization | [facility] | + + + | Address | [address] [facility] | | | [place] [address] | + + + | Phone | | + + + Care Team Providers + + + + | Care Correctional Officer Sergeant Name | Role | Phone | + + + + Unavailable | Unavailable | + + + + Unavailable | Unavailable | + + + + Allergies and Intolerances + + + + + | date | description | facility | type | + + + + + | (no date) | Urticaria | [facility] | (unknown) | | | | Hospital | | + + + + + | (no date) | Amoxicillin | [facility] | (unknown) | | | | Hospital | | + + + + + | (no date) | Amoxicillin | [facility] | (unknown) | | | | Hospital | | + + + + + | (no date) | Amoxicillin | [facility] | (unknown) | | | | Hospital | | + + + + + Encounters No information. Functional Status No information. Immunizations No information. Medications + + + + | date | description | facility | + + + + | 2022-07-29 00:00 | [facility] | [facility] | + + + + Problems + + + + | | description | facility | + + + + | 2017-02-09 00:00 | Abrasion of left cornea | [facility] | + + + + | 2017-07-01 00:00 | Acute strain of neck | [facility] | | | muscle | | + + + + | 2018-05-28 00:00 | Encounter for medical | [facility] | | | screening examination | | + + + + | 2021-01-11 00:00 | Acute perforated | [facility] | | | appendicitis | | + + + + | 2022-07-29 00:00 | Pain due to dental caries | [facility] | + + + + Procedures No [...]
[~2022-09-12 20:26] MED LIST changes: +CLEOCIN HCL300 MG PO
[2022-09-12] MEDS ORDERED: TRAMADOL HCL50 MG PO (21:18)
[2022-09-12 21:30] VITALS: BP 133/74
== END 2022-09-12 21:31 | disposition home or self-care (01) ==
LOC: ED 20:26
DX: S60.221A Contusion of right hand, initial encounter (principal); W22.8XXA Striking against or struck by other objects, initial encounter; Z88.0 Allergy status to penicillin; Z88.8 Allergy status to other drugs, medicaments and biological substances
CPT/HCPCS: 73130; 99283 25; A9270